=== PATIENT | female | born 1965 | race African-American/Black ===

== ENCOUNTER 2016-06-13 20:40 | Emergency (ER) | payer SELFPAY ==
[~2016-06-13] VITALS: Ht 157.5 cm; Wt 59.0 kg
[2016-06-13 20:45] VITALS: BP 133/90
[2016-06-13 23:15] VITALS: BP 130/89
[2016-06-14] MEDS ORDERED: Albuterol ud Inhalation HHN ONE (00:15)
[2016-06-14] MEDS ORDERED: Ipratropium 0.02% Inh Soln 2.5ml UD HHN ONE (00:15)
[2016-06-14] MEDS ORDERED: PredniSONE 20mg tab ORAL ONE (00:15)
[2016-06-14 01:15] VITALS: BP 129/89
[2016-06-14 01:25] VITALS: BP 129/89
--- NOTE | 2016-06-15 15:54 | Emergency Room Report ---
History of Present Illness General Chief Complaint: Alcohol Intoxication Source: Patient, EMS Present Illness HPI 51-year-old female presents to ED for alcohol intoxication. Per EMS patient was picked up on the street. Bystanders called 911. Upon arrival patient is awake alert, ambulating however intoxicated. Patient denies alcohol use. Denies drug use. Patient states that she has history of asthma and needs a breathing treatment. Denies any fevers or chills. Denies cough. Denies chest pain. no other aggravating or relieving factors. denies any other associated symptoms Allergies: Coded Allergies: No Known Allergies (Unverified , 06/13/16) Patient History Past Medical History: asthma Past Surgical History: none Pertinent Family History: none Social History: Reports: alcohol use, Denies: drug use, smoking Last Menstrual Period: unknown Now: No Immunizations: UTD Reviewed Nursing Documentation: PMH: Agreed, PSxH: Agreed Nursing Documentation-PMH Hx Asthma: Yes Review of Systems All Other Systems: negative except mentioned in HPI Physical Exam Vital Signs Date Time Temp Pulse Resp B/P Pulse Ox O2 Delivery O2 Flow Rate FiO2 06/13/16 20:35 98.1 80 18 133/90 98 Room Air Sp02 EP Interpretation: reviewed, normal General Appearance: no apparent distress, alert, GCS 15, non-toxic Head: normocephalic, atraumatic Eyes: bilateral eye PERRL, bilateral eye normal inspection ENT: hearing grossly normal, normal pharynx, no angioedema, normal voice Neck: full range of motion, supple/symm/no masses Respiratory: chest non-tender, lungs clear, normal breath sounds, speaking full sentences Cardiovascular #1: regular rate, rhythm, no edema Cardiovascular #2: 2+ carotid (R), 2+ carotid (L), 2+ radial (R), 2+ radial (L) , 2+ dorsalis pedis (R), 2+ dorsalis pedis (L) Gastrointestinal: normal bowel sounds, non tender, soft, non-distended, no guarding, no rebound Rectal: deferred Genitourinary: normal inspection, no CVA tenderness Musculoskeletal: back normal, gait/station normal, normal range of motion, non- tender Neurologic: alert, oriented x3, responsive, motor strength/tone normal, sensory intact, speech normal Psychiatric: judgement/insight normal, memory normal, mood/affect normal, no suicidal/homicidal ideation Reflexes: 3+ bicep (R), 3+ bicep (L), 3+ tricep (R), 3+ tricep (L), 3+ knee (R) , 3+ knee (L) Skin: normal color, no rash, warm/dry, well hydrated Lymphatic: no adenopathy Medical Decision Making Diagnostic Impression: Primary Impression: Acute alcoholic intoxication Qualified Codes: F10.120 - Alcohol abuse with intoxication, uncomplicated Additional Impression: Asthma Qualified Codes: J45.909 - Unspecified asthma, uncomplicated ER Course Hospital Course 51-year-old female presents to ED status post EtOH intoxication. History of asthma Clinical course Patient placed on stretcher. Given that patient is able to provide an adequate history, I see no need to check blood work or place an IV. patient is requesting a breathing treatment. Lungs are clear. However I agreed to provide patient with breathing treatment respiratory therapist been informed that patient is now refusing breathing treatment. Walking [id number] in ED, agitated and combative. I explained to the patient that if she continues to behave in this manner she will be asked to leave. Patient picks up her belongings and walks out of the ER Diagnosis - ETOH intoxication, asthma patient eloped Last Vital Signs Date Time Temp Pulse Resp B/P Pulse Ox O2 Delivery O2 Flow Rate FiO2 06/14/16 01:25 95 17 129/89 99 Room Air 06/14/16 01:15 98.0 Disposition: ELOPED Condition: Stable Referrals: NOT CHOSEN [facility]/,REFERRING (PCP) DELGADO SULLIVAN M.D. Jun 15, 2016 15:54
== END 2016-06-14 01:25 | disposition left against medical advice (07) ==
LOC: EDBD 20:40 → EMR 22:04
DX: F10.129 Alcohol abuse with intoxication, unspecified (principal); J45.909 Unspecified asthma, uncomplicated
CPT/HCPCS: 99283

== ENCOUNTER 2017-01-05 04:14 | Emergency (ER) | payer OTHER ==
[~2017-01-05] VITALS: Ht 157.5 cm; Wt 49.9 kg
[2017-01-05 04:26] VITALS: BP 133/79
[2017-01-05] MEDS ORDERED: PredniSONE 20mg tab ORAL ONE (04:30)
[2017-01-05] MEDS ORDERED: Ipratropium 0.02% Inh Soln 2.5ml UD HHN ONE (04:30)
[2017-01-05] MEDS ORDERED: Albuterol ud Inhalation HHN ONE (04:30)
--- NOTE | 2017-01-05 04:33 | Emergency Room Report ---
History of Present Illness General Chief Complaint: Chest Pain Source: Patient Present Illness HPI Is a 51-year-old female with a history of asthma. She continued to smoke. She presents with chief complaint of shortness of breath and wheezing. This occur after smoking cigarettes. She was on the street which she call 911. They gave her repeat treatment brought her here. Because of the tightness in her lung she complaining of chest tightness and pain. No fever chills but no nausea no vomiting. No exertional component. No Radiation. Denies any other complaint. Allergies: Coded Allergies: No Known Allergies (Unverified , 01/05/17) Patient History Past Medical History: see triage record, old chart reviewed, asthma Past Surgical History: none Pertinent Family History: none Social History: Reports: smoking Last Menstrual Period: n/a Now: No Immunizations: other Reviewed Nursing Documentation: PMH: Agreed, PSxH: Agreed Nursing Documentation-PMH Past Medical History: No History, Except For Hx Asthma: Yes - HIV+ Review of Systems Eye: Denies: eye pain, blurred vision ENT: Denies: ear pain, nose congestion, throat swelling Respiratory: Reports: cough, shortness of breath, wheezing Cardiovascular: Reports: chest pain, Denies: palpitations Gastrointestinal: Denies: abdominal pain, diarrhea, nausea, vomiting Musculoskeletal: Denies: back pain, joint pain Skin: Denies: rash Neurological: Denies: headache, numbness Endocrine: Denies: increased thirst, increased urine Hematologic/Lymphatic: Denies: easy bruising All Other Systems: negative except mentioned in HPI Physical Exam Vital Signs Date Time Temp Pulse Resp B/P (MAP) Pulse Ox O2 Delivery O2 Flow Rate FiO2 01/05/17 04:14 98.1 105 22 133/79 93 Room Air 01/05/17 04:26 2.0 vitals with mild hypoxia Sp02 EP Interpretation: reviewed, normal General Appearance: well appearing, no apparent distress, alert Head: normocephalic, atraumatic Eyes: bilateral eye PERRL, bilateral eye EOMI ENT: hearing grossly normal, normal pharynx Neck: full range of motion, supple, no meningismus Respiratory: chest non-tender, decreased breath sounds, wheezing Cardiovascular #1: regular rate, rhythm, no murmur Gastrointestinal: normal bowel sounds, non tender, no mass, no organomegaly, no bruit, non-distended Musculoskeletal: back normal, gait/station normal, normal range of motion Psychiatric: mood/affect normal Skin: warm/dry Medical Decision Making Diagnostic Impression: Primary Impression: COPD exacerbation ER Course She presents with COPD exacerbation with bronchospasm. His account for her chest pain. Lungs clear now. No evidence of ACS, PE, dissection or pneumonia to name a few. We'll discharge home. EKG Diagnostic Results Rate: normal Rhythm: NSR ST Segments: no acute changes Rhythm Strip Diag. Results Rhythm Strip Time: 04:33 EP Interpretation: yes Rate: 80 Rhythm: NSR, no PVC's, no ectopy Chest X-Ray Diagnostic Results Chest X-Ray Diagnostic Results : Chest X-Ray Ordered: Yes # of Views/Limited/Complete: 1 View Indication: Shortness of Breath EP Interpretation: Yes Interpretation: no consolidation, no effusion, no pneumothorax, no acute cardiopulmonary disease, other - COPD Impression: No acute disease Electronically Signed by: Electronically signed by Dinh Hodges MD Last Vital Signs Date Time Temp Pulse Resp B/P (MAP) Pulse Ox O2 Delivery O2 Flow Rate FiO2 01/05/17 04:26 89 16 Nasal Cannula 2.0 01/05/17 04:26 98.1 133/79 94 Status: improved Disposition: HOME, SELF-CARE Condition: Stable Scripts Azithromycin* (ZITHROMAX*) 250 Mg Tablet 250 MG ORAL DAILY, #6 TAB 0 Refills Take two tablets by mouth today, then take one tablet by mouth daily for four days Prov: DINH HODGES M.D. 01/05/17 Prednisone* (PREDNISONE*) 20 Mg Tablet 60 MG ORAL DAILY, #12 TAB Prov: DINH HODGES M.D. 01/05/17 Additional Instructions: Stop Smoking. Followup with your DrAida in 2-3 days. Return if symptom worsen. DINH HODGES M.D. Jan 05, 2017 04:33
[2017-01-05] MEDS ORDERED: PREDNISONE20 MG ORAL (06:05)
[2017-01-05] MEDS ORDERED: AZITHROMYCIN250 MG ORAL (06:05)
[2017-01-05 06:26] VITALS: BP 124/81
[2017-01-05 06:27] VITALS: BP 133/79
--- NOTE | 2017-01-05 09:53 | Diagnostic Imaging Report ---
Indication: Dyspnea Comparison: None A single view chest radiograph was obtained. Findings: Cardiomediastinal appearance is within normal limits for age. Pulmonary vascularity is appropriate. The diaphragmatic contour is smooth and costophrenic angles are sharp. No pleural effusions are identified. The bones are osteopenic. Impression: No acute findings
== END 2017-01-05 06:36 | disposition home or self-care (01) ==
LOC: EDBD 04:14 → EDUNIT# 04:14 → EMR 04:31
DX: J44.1 Chronic obstructive pulmonary disease with (acute) exacerbation (principal)
CPT/HCPCS: 71010; 80300; 94640; 94664; 99284

== ENCOUNTER 2017-01-08 12:00 | Emergency (ER) | payer OTHER ==
[~2017-01-08] VITALS: Ht 157.5 cm; Wt 49.0 kg
[~2017-01-08 12:00] MED LIST: AZITHROMYCIN250 MG ORAL; PREDNISONE20 MG ORAL
[2017-01-08] MEDS ORDERED: Ketorolac 60mg Inj IM ONE (12:15)
[2017-01-08] MEDS ORDERED: Metoclopramide 10mg/2ml Inj IM ONE (12:15)
[2017-01-08] MEDS ORDERED: DiphenhydrAMINE 50mg/ml Inj IM ONE (12:15)
--- NOTE | 2017-01-08 12:34 | Emergency Room Report ---
History of Present Illness General Chief Complaint: Headache Source: Patient, EMS Present Illness HPI The patient is a 51-year-old female presenting for headache. Pain is described as a 10 out of 10 dull ache to the front of the head and does not radiate. This has persisted for 10 days. She has not tried any pain medications for this yet. She denies other symptoms including fever, chills, neck pain or stiffness, shortness of breath, chest pain, dizziness, blurred vision Allergies: Coded Allergies: No Known Allergies (Unverified , 01/05/17) Patient History Past Medical History: see triage record Pertinent Family History: none Last Menstrual Period: 12/05/16 Now: No Reviewed Nursing Documentation: PMH: Agreed, PSxH: Agreed Nursing Documentation-PMH Hx Asthma: Yes Review of Systems All Other Systems: negative except mentioned in HPI Physical Exam Vital Signs Date Time Temp Pulse Resp B/P (MAP) Pulse Ox O2 Delivery O2 Flow Rate FiO2 01/08/17 11:57 98.4 98 16 118/66 98 Room Air Sp02 EP Interpretation: reviewed, normal General Appearance: no apparent distress, alert, GCS 15, non-toxic Head: normocephalic, atraumatic Eyes: bilateral eye normal inspection, bilateral eye PERRL ENT: hearing grossly normal, normal pharynx, no angioedema, normal voice Neck: full range of motion, supple/symm/no masses Musculoskeletal: back normal, gait/station normal, normal range of motion, non- tender Neurologic: alert, oriented x3, responsive, motor strength/tone normal, sensory intact, speech normal Psychiatric: judgement/insight normal, memory normal, mood/affect normal, no suicidal/homicidal ideation Skin: normal color, no rash, warm/dry, well hydrated Medical Decision Making PA Attestation Dr. Esparza is my supervising physician. Patient management was discussed with my supervising physician Diagnostic Impression: Primary Impression: Headache Qualified Codes: R51 - Headache ER Course The patient is a 51-year-old female presenting for headache for the past 10 days Differential diagnoses include but not limited to Migraine, tension headache, dehydration, sinusitis, among others PE: NAD. Afebrile. Head is NC/AT. Non tendder. PERRL. EOMI Neck is soft and supple. Pt is given toradol, reglan, benadryl and will be DC'ed home. Pt now states she cannot get up and wants to sleep. ER precautions given. Pt is DC'ed Last Vital Signs Date Time Temp Pulse Resp B/P (MAP) Pulse Ox O2 Delivery O2 Flow Rate FiO2 01/08/17 11:57 98.4 98 16 118/66 98 Room Air Status: improved Disposition: HOME, SELF-CARE Condition: Improved Scripts Ibuprofen* (MOTRIN*) 600 Mg Tablet 600 MG ORAL Q8H Y for For Pain, #30 TAB 0 Refills Prov: RAYSA URRUTIA 01/08/17 Referrals: [facility],REFERR[facility] (PCP) RAYSA URRUTIA Jan 08, 2017 12:34
[2017-01-08] MEDS ORDERED: IBUPROFEN600 MG ORAL (13:28)
[2017-01-08 13:42] VITALS: BP 114/64
[2017-01-08 13:48] VITALS: BP 114/64
== END 2017-01-08 13:50 | disposition home or self-care (01) ==
LOC: EDBD 12:00 → EMR 12:20
DX: R51 Headache (principal); J45.909 Unspecified asthma, uncomplicated
CPT/HCPCS: 96372; 99284; J1200; J2765